=== PATIENT | male | born 1995 | race Caucasian/White ===

== ENCOUNTER 2017-05-29 11:13 | Emergency (ER) | payer OTHER ==
[~2017-05-29] VITALS: Ht 180.3 cm; Wt 80.0 kg
[~2017-05-29 11:13] MED LIST: CLIN150 PO
[2017-05-29 11:20] VITALS: BP 171/81; PULSE 91; RESP 16; TEMP 98.4; O2SAT 99
[2017-05-29] MEDS ORDERED: LIDOCAINE HCL 1% 50 ML VIAL INFIL ONE (13:15)
[2017-05-29] MEDS ORDERED: CEPH-460 PO (14:04)
--- NOTE | 2017-05-29 14:08 | PD ---
HPI . 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 Left thumb is neurovascularly intact. Patient has no major medical history doesn't take any daily medication. PFSH Past Medical History Diminished Hearing: No Tetanus Vaccination: < 5 Years Influenza Vaccination: Yes ?: Not Social History Alcohol Use: No Tobacco Use: No Substance Use: No Allergies-Medications (Allergen,Severity, Reaction): Coded Allergies: No Known Allergies (Unverified Adverse Reaction, Unknown, 05/29/17) Reported Meds & Prescriptions Reported Meds & Active Scripts Active Cleocin (Clindamycin HCl) 150 Mg Cap 2 Tab PO QID Review of Systems Except as stated in HPI: all other systems reviewed are Neg Physical Exam Narrative GENERAL: Well-nourished, well-developed 21-year-old male patient in no acute distress. Nontoxic appearing. SKIN: 4 cm shoe horse shaped laceration to the medial aspect of the left thumb on the palmar side. HEAD: Normocephalic. Atraumatic. EYES: No scleral icterus. No injection or drainage. NECK: Supple, trachea midline. No JVD or lymphadenopathy. CARDIOVASCULAR: Regular rate and rhythm without murmurs, gallops, or rubs. RESPIRATORY: Breath sounds equal bilaterally. No accessory muscle use. GASTROINTESTINAL: Abdomen soft, non-tender, nondistended. MUSCULOSKELETAL: No cyanosis, or edema. BACK: Nontender without obvious deformity. No CVA tenderness. Data Data Last Documented VS Vital Signs Date Time Temp Pulse Resp B/P (MAP) Pulse Ox O2 Delivery O2 Flow Rate FiO2 05/29/17 11:20 98.4 91 16 171/81 (111) 99 Orders Orders Lidocaine 1% Inj (50 Ml) (Xylocaine 1% I (05/29/17 13:15) [facility] Medical Decision Making Medical Screen Exam Complete: Yes Emergency Medical Condition: Yes Differential Diagnosis Differential diagnoses include but not limited to laceration, cellulitis, abrasion Narrative Course 21-year-old male patient presents emergency department for evaluation of laceration to the left medial palmar aspect of his thumb that he sustained today while at work trying to 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 Patient is up-to-date on his vaccines. The thumb is neurovascularly intact. Patient has full range of motion of his left hand. The laceration is shoe horse shaped. Laceration was repaired. Please see my procedural narrative. Patient was discharged home with prophylactic antibiotics due to the hand being high risk location. Patient instructed to get sutures removed in 7-10 days. Procedures Procedure Narrative LACERATION LOCATION: Medial palmar aspect of left thumb LENGTH: 4 cm NUMBER OF STITCHES/TANA: 5 simple interrupted sutures using 4. 0 Prolene REPAIR: The area of the laceration was prepped with Betadine and sterilely draped. The laceration was infiltrated with 1% lidocaine. The wound was copiously irrigated and explored without evidence of foreign body, tendon injury or neurovascular injury. The wound was closed using 5 simple interrupted sutures using 4. 0 Prolene. This was a single layer repair. A sterile dressing was applied. The patient was advised to keep the dressing clean and dry. Patient tolerated the procedure well. Diagnosis Primary Impression: Laceration of finger Qualified Codes: S61.012A - Laceration without foreign body of left thumb without damage to nail, initial encounter Referrals: Primary Care Physician Patient Instructions: Finger Laceration (ED), General Instructions Additional Instructions: Please return to emergency department if your symptoms return or worsen. Follow up with your primary care provider. Take medications as prescribed. Keep wound clean and dry. May take ibuprofen or Tylenol as needed for pain. Get sutures removed in 7-10 days. Med/Other Pt SpecificInfo: Prescription(s) given Scripts Cephalexin (Keflex) 500 Mg Cap 500 MG PO Q6H for Infection for 5 Days, #20 CAP 0 Refills Prov: Jayde Fuller 05/29/17 Disposition: 01 DISCHARGE HOME Condition: Stable Jayde Fuller May 29, 2017 14:08
== END 2017-05-29 14:15 | disposition home or self-care (01) ==
LOC: PHED 11:13 → PHEFT 14:15
DX: S61.012A Laceration without foreign body of left thumb without damage to nail, initial encounter (principal); W26.0XXA Contact with knife, initial encounter; Y99.0 Civilian activity done for income or pay
CPT/HCPCS: 12002